=== PATIENT | female | born 1940 | race Caucasian/White ===

== ENCOUNTER 2016-12-10 17:53 | Observation (INO) | payer BC ==
[~2016-12-10] VITALS: Ht 154.9 cm; Wt 103.0 kg
[2016-12-10] MEDS ORDERED: DILAUDID 1 MG/ML AMP ONE (19:06)
[2016-12-10] MEDS ORDERED: BUSPIRONE HCL 15 MG TAB PO SCH (21:00)
[2016-12-10] MEDS ORDERED: CALCIUM CARB 600 MG TAB PO SCH (21:00)
[2016-12-10 22:02] VITALS: BP_SYST 128; BP_SYST 134; RESP 20; TEMP 98
[2016-12-10 22:13] VITALS: Ht 154.9 cm; Wt 103.0 kg
[2016-12-10] MEDS: DILAUDID 1 MG/ML AMP IV PRN (23:38)
[2016-12-11] VITALS (7 sets, daily range): BP systolic 112–154; RESP 16–24; TEMP 97.9–98.6
[2016-12-11] MEDS: PHENYTOIN 100 MG CAP PO SCH ×2 (00:45→20:40)
[2016-12-11] MEDS: IMIPRAMINE 25 MG PO SCH ×2 (00:46→20:40)
[2016-12-11] MEDS: BUSPIRONE HCL 15 MG TAB PO SCH ×4 (00:46→20:39)
[2016-12-11] MEDS: RANITIDINE 150 MG TAB PO SCH ×2 (00:47→20:39)
[2016-12-11] MEDS: TOPIRAMATE 100 MG TAB PO SCH ×3 (00:50→20:40)
[2016-12-11] MEDS: LEVOTHYROXINE 0.15 MG TAB PO SCH (07:00)
[2016-12-11] MEDS: PANTOPRAZOLE 40 MG TAB PO SCH (07:00)
[2016-12-11] MEDS: DILAUDID 1 MG/ML AMP IV PRN ×3 (07:34→20:39)
[2016-12-11] MEDS: BUMETANIDE 1 MG TAB PO SCH ×2 (09:26→16:45)
[2016-12-11] MEDS: KCL CR 10 MEQ TAB PO SCH (09:26)
[2016-12-11] MEDS: MONTELUKAST 10 MG TAB PO SCH (09:26)
[2016-12-11] MEDS: METOPROLOL XL 50 MG TAB PO SCH (09:26)
[2016-12-11] MEDS: CALCIUM CARB 600 MG TAB PO SCH (09:26)
[2016-12-11] MEDS: SERTRALINE 100 MG TAB PO SCH (09:27)
[2016-12-12 03:44] VITALS: BP_SYST 152; RESP 18; TEMP 98.2
[2016-12-12] MEDS: DILAUDID 1 MG/ML AMP IV PRN ×3 (04:04→23:23)
[2016-12-12] MEDS: SODIUM CHLORIDE 0.9% FLUSH BAG 500 ML IV SCH (04:36)
[2016-12-12] MEDS: PANTOPRAZOLE 40 MG TAB PO SCH (06:22)
[2016-12-12] MEDS: LEVOTHYROXINE 0.15 MG TAB PO SCH (06:22)
[2016-12-12 07:31] VITALS: BP_SYST 139; RESP 16; TEMP 98.1
[2016-12-12] MEDS: BUSPIRONE HCL 15 MG TAB PO SCH ×3 (09:38→20:38)
[2016-12-12] MEDS: BUMETANIDE 1 MG TAB PO SCH ×2 (09:38→17:24)
[2016-12-12] MEDS: SERTRALINE 100 MG TAB PO SCH (09:38)
[2016-12-12] MEDS: TOPIRAMATE 100 MG TAB PO SCH ×2 (09:38→20:37)
[2016-12-12] MEDS: METOPROLOL XL 50 MG TAB PO SCH (09:39)
[2016-12-12] MEDS: MONTELUKAST 10 MG TAB PO SCH (09:39)
[2016-12-12] MEDS: KCL CR 10 MEQ TAB PO SCH (09:39)
[2016-12-12] MEDS: CALCIUM CARB 600 MG TAB PO SCH (09:39)
[2016-12-12 11:43] VITALS: BP_SYST 151; RESP 20; TEMP 97.9
[2016-12-12 15:25] VITALS: BP_SYST 142; RESP 20; TEMP 97.5
[2016-12-12 19:24] VITALS: BP_SYST 153; RESP 20; TEMP 98.1
[2016-12-12] MEDS: RANITIDINE 150 MG TAB PO SCH (20:37)
[2016-12-12] MEDS: PHENYTOIN 100 MG CAP PO SCH (20:38)
[2016-12-12] MEDS: IMIPRAMINE 25 MG PO SCH (20:38)
[2016-12-12] MEDS ORDERED: MISSING DOSE XX ONE (20:55)
[2016-12-12 23:20] VITALS: BP_SYST 157; RESP 20; TEMP 98.4
[2016-12-13] MEDS: SODIUM CHLORIDE 0.9% FLUSH BAG 500 ML IV SCH (04:15)
[2016-12-13] MEDS: PANTOPRAZOLE 40 MG TAB PO SCH (06:19)
[2016-12-13] MEDS: LEVOTHYROXINE 0.15 MG TAB PO SCH (06:20)
[2016-12-13 07:08] VITALS: BP_SYST 166; RESP 20; TEMP 98.1
[2016-12-13] MEDS: BUSPIRONE HCL 15 MG TAB PO SCH ×3 (09:10→21:02)
[2016-12-13] MEDS: TOPIRAMATE 100 MG TAB PO SCH ×2 (09:11→21:01)
[2016-12-13] MEDS: CALCIUM CARB 600 MG TAB PO SCH (09:11)
[2016-12-13] MEDS: SERTRALINE 100 MG TAB PO SCH (09:11)
[2016-12-13] MEDS: KCL CR 10 MEQ TAB PO SCH (09:11)
[2016-12-13] MEDS: METOPROLOL XL 50 MG TAB PO SCH (09:11)
[2016-12-13] MEDS: BUMETANIDE 1 MG TAB PO SCH ×2 (09:11→16:00)
[2016-12-13] MEDS: MONTELUKAST 10 MG TAB PO SCH (09:11)
[2016-12-13 10:58] VITALS: BP_SYST 155; RESP 20; TEMP 98
[2016-12-13 15:23] VITALS: BP_SYST 151; RESP 20; TEMP 98
[2016-12-13 19:45] VITALS: BP_SYST 135; RESP 18; TEMP 98.7
[2016-12-13] MEDS: IMIPRAMINE 25 MG PO SCH (21:01)
[2016-12-13] MEDS: RANITIDINE 150 MG TAB PO SCH (21:01)
[2016-12-13] MEDS: PHENYTOIN 100 MG CAP PO SCH (21:02)
[2016-12-14] VITALS (7 sets, daily range): BP systolic 96–152; RESP 18–20; TEMP 97.5–98.3
[2016-12-14] MEDS: SODIUM CHLORIDE 0.9% FLUSH BAG 500 ML IV SCH (04:42)
[2016-12-14] MEDS: PANTOPRAZOLE 40 MG TAB PO SCH (06:00)
[2016-12-14] MEDS: LEVOTHYROXINE 0.15 MG TAB PO SCH (06:00)
[2016-12-14] MEDS ORDERED: PHILLIPS COLON HEALTH PO SCH (08:00)
[2016-12-14] MEDS: BUSPIRONE HCL 15 MG TAB PO SCH ×2 (08:30→16:09)
[2016-12-14] MEDS: METOPROLOL XL 50 MG TAB PO SCH (08:30)
[2016-12-14] MEDS: MONTELUKAST 10 MG TAB PO SCH (08:30)
[2016-12-14] MEDS: CALCIUM CARB 600 MG TAB PO SCH (08:30)
[2016-12-14] MEDS: TOPIRAMATE 100 MG TAB PO SCH (08:31)
[2016-12-14] MEDS: KCL CR 10 MEQ TAB PO SCH (08:31)
[2016-12-14] MEDS: SERTRALINE 100 MG TAB PO SCH (08:31)
[2016-12-14] MEDS: BUMETANIDE 1 MG TAB PO SCH ×2 (08:31→16:10)
[2016-12-17] MEDS ORDERED: ERGOCALCIFEROL 50,000 UNITS (1.25 MG) CAP PO SCH (09:00)
== END 2016-12-14 13:50 ==
LOC: ENRESERV → ENRESERVTM → ENRESERVDT → ER 17:53 → ENPENDDIS 20:34 → EMR 20:34 → 4NT 21:58
PROVIDERS: ADMIT Internal Medicine; ATTEND Internal Medicine
DX: M54.5 Low back pain (principal); I25.10 Atherosclerotic heart disease of native coronary artery without angina pectoris; G40.909 Epilepsy, unspecified, not intractable, without status epilepticus; E03.9 Hypothyroidism, unspecified; E78.00 Pure hypercholesterolemia, unspecified; J44.9 Chronic obstructive pulmonary disease, unspecified; F32.9 Major depressive disorder, single episode, unspecified; Z87.891 Personal history of nicotine dependence; M10.9 Gout, unspecified; G72.89 Other specified myopathies; M54.6 Pain in thoracic spine; C34.90 Malignant neoplasm of unspecified part of unspecified bronchus or lung; Z99.81 Dependence on supplemental oxygen
CPT/HCPCS: 36415; 71010; 72146; 72148; 80053; 81003; 82553; 82947; 83735; 83880; 84484; 85025; 93005; 96374; 96376; 97110; 97162; 97166; 97530; 97799; 99284; G0378; G8978; G8979; G8980; G8987; G8988; G8989; J1170; 94799